=== PATIENT | female | born 1950 | race Caucasian/White ===

== ENCOUNTER 2021-08-13 02:54 | Outpatient (CLI) | payer MEDICARE, SELFPAY ==
[2021-08-13 13:11] LABS: Source Nasal/Nares
[2021-08-13 18:14] LABS: COVID-19 PCR Negative (Negative)
== END 2021-08-13 02:55 | disposition home or self-care (01) ==
PROVIDERS: Visit Provider Podiatrist
DX: Z20.822 Contact with and (suspected) exposure to COVID-19 (principal); Z01.818 Encounter for other preprocedural examination
CPT/HCPCS: 87635

== ENCOUNTER 2021-08-15 06:17 | Day surgery (SDC) | payer MEDICARE, SELFPAY ==
--- NOTE | 2021-08-15 06:13 | W.ANESPRE ---
General Info Date of Service Date Performed: 08/15/21 Height: 5 ft 6 in Weight: 69 kg Body Mass Index (BMI): 24.5 Surgical Procedure: Operation Date: 08/15/21 07:40 Proposed Procedures Side Surgeon p Bunionectomy DE LEON Right Donell Leonard DPM s Arthroplasty SECOND TOE RT FOOT Right Donell Leonard DPM Meds Allergies and Home Medications Allergies Allergy/AdvReac Type Severity Reaction Status Date / Time No Known Allergies Allergy Unverified 08/12/21 10:56 Home Medication Medication Instructions Recorded Unknown [No Known Home Meds] 08/12/21 Current Visit Medications: Current Medications Generic Name Dose Route Start Last Admin Trade Name Freq PRN Reason Stop Dose Admin Sodium Chloride 500 mls @ 0 mls/hr 08/15/21 06:00 Saline 500ml Bag IV PRN PRN As Directed Cefazolin Sodium/Dextrose 1 gm in 50 mls @ 100 mls/hr 08/15/21 06:00 Ancef Duplex IVPB 08/15/21 16:00 PREOP LIANNE Ringer's Solution 1,000 mls @ 80 mls/hr 08/15/21 06:00 IV 09/13/21 23:59 [facility]ION [facility] IV Miscellaneous Supplies 1 each 08/15/21 06:00 Iv Access IV DIRECTED LIANNE IV Miscellaneous Supplies 1 each 08/15/21 06:00 Iv Access IV 09/13/21 23:59 DIRECTED LIANNE Povidone Iodine 0 ml 08/15/21 06:00 Povidone-Iodine Soln. 118 Ml Btl TP 08/15/21 16:00 DIRECTED LIANNE Sodium Chloride 0 ml 08/15/21 06:00 Normal Saline Flush 10 Ml Syr IVP PRN PRN Sodium Chloride 0 ml 08/15/21 06:00 Normal Saline Flush 10 Ml Syr IV 09/13/21 23:59 PRN PRN Sodium Chloride 0 ml 08/15/21 06:00 Normal Saline 10 Ml Vial IJ 09/13/21 23:59 DIRECTED PRN Sterile Water 0 ml 08/15/21 06:00 Water,Injection,Sterile 10 Ml Vial IJ 09/13/21 23:59 DIRECTED PRN PFSH Medical History Medical History Pilonidal cyst Surgical History Surgical History Hx of appendectomy Hx of arthroscopy of right knee Hx of colonoscopy Hx of tonsillectomy Tobacco Smoking/Tobacco Use Status: Never Alcohol Alcohol Intake: current Alcohol intake frequency: a few times a month Substance Use Substance use type: does not use Vital Signs and Lab Results Vital Signs Most Recent Vital Signs in EMR: Temp Pulse Resp BP Pulse Ox 35.9 C L 63 16 129/77 98 08/15/21 06:20 08/15/21 06:20 08/15/21 06:20 08/15/21 06:20 08/15/21 06:20 Lab Results Blood Type / Crossmatch: No Data to Display Complete Blood Count: No Data to Display Complete Metabolic Panel: No Data to Display Liver Function Panel: No Data to Display Coagulation Panel: No Data to Display Cardiac Panel: No Data to Display Arterial Blood Gas: No Data to Display Venous Blood Gas: No Data to Display Pancreas Panel: No Data to Display Thyroid Panel: No Data to Display Infectious Disease: Coronavirus (COVID-19)(PCR) Negative (Negative) 08/13/21 08:56 08/13/21 Coronavirus 2019 Source Nasal/Nares 08/13/21 08:56 08/13/21 Blood Cultures: No Data to Display Toxicology Panel: No Data to Display Anesthesia Assessment and Plan Anesthesia History Personal History: No History of Anesthesia Complications Family History: No Family History of Anesthesia Complications Exercise Tolerance Exercise Tolerance: Metabolic Equivalents>4 Cardiac & Pulmonary Exam Cardiac Exam: Normal S1/S2 Heart Sounds Pulmonary Exam: Clear Bilateral Breath Sounds Airway Exam Known Difficult Airway: No Mallampati Class: 2 Mouth Opening: Narrow (< 3cm) Thyromental Distance: Greater than 3 cm Neck Range of Motion: Full ROM Neck Circumference: Normal Teeth Condition: Normal Dentition ASA Classification ASA Score: ASA 2 Emergency Case?: No NPO Status NPO Status: NPO Clears >2 hours, Solids >8 hours Anesthesia Plan Resuscitation Status: Full Code Anesthesia Technique: General Anesthesia Airway Planned: Natural Airway Monitors Used: Standard Monitors Preoperative Comments:: 70 yo female for bunionectomy right foot. Denies any major medical history. no previous anesthesia record. Plan for prop, no airway.
[2021-08-15 06:20] VITALS: BP 129/77; PULSE 63; RESP 16; TEMP 35.9; O2SAT 98
[2021-08-15] MEDS: Lactated Ringers 1,000 ML 80 ML IV (06:49)
--- NOTE | 2021-08-15 07:04 | HPE_ITS ---
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 Pain is experienced with shoe gear interfering with daily activities and ambulation. Nonoperative treatments have failed to provide significant relief of symptoms. [facility] Medical History Pilonidal cyst Surgical History Hx of appendectomy Hx of arthroscopy of right knee Hx of colonoscopy Hx of tonsillectomy Social History Smoking/Tobacco Use Status: Never Smoking risk assessment performed?: Yes Alcohol Intake: current Alcohol Intake frequency: a few times a month Substance use type: does not use Do you feel safe at home: Yes Do you feel safe in your relationship?: Yes Meds Allergies and Home Medications Allergies Allergy/AdvReac Type Severity Reaction Status Date / Time No Known Allergies Allergy Unverified 08/12/21 10:56 Home Medications Medication Instructions Recorded Confirmed Type Unknown [No Known Home Meds] 08/12/21 08/12/21 History Exam Narrative Exam Narrative: 70-year-old female in no acute distress for surgical correction of a symptomatic right hallux rigidus deformity and second digit hammertoe. Head is normocephalic Eyes PERRLA Hearing is adequate Uvula is midline airway looks assessable Heart had regular rate and rhythm I detected no gallops rubs or murmurs Lung garnica were clear Abdomen was soft bowel sounds appreciated Peripheral pulses minimally palpable at the ankles minus 2 out of 4, capillary fill is under 3 seconds without edema. Skin grossly intact no suspicious moles or lesions Muscle groups are 5 out of 5 bilaterally Skeletal exam is remarkable for end-stage degenerative arthrosis of the first MPJ of the right foot. Periarticular exostoses are noted periarticular tenderness on direct palpation. Crepitance is noted. Semirigid right second hammertoe deformity is appreciated with tenderness noted over the PIPJ. Neurologically grossly intact Impressions: End-stage degenerative arthrosis first MPJ right foot, hammertoe second digit Plan: Sima is being brought to the OR for her surgical correction of the above-mentioned painful deformities. She understands risk and complications of surgery pertaining to pain, scarring, infection, shortening of the great toe, floating of the great toe, similar changes to the second toe, the potential for revisional procedures were discussed. No promises were made to final outcome of surgery. Informed consents been obtained. Results Last Vital Signs Temp 35.9 C L 08/15/21 06:20 Pulse 63 08/15/21 06:20 Resp 16 08/15/21 06:20 BP 129/77 08/15/21 06:20 Pulse Ox 98 08/15/21 06:20
[2021-08-15 07:05] VITALS: BMI 24.5
[2021-08-15] MEDS: ceFAZolin 1 GM/50 ML BAG IVPB (07:37)
[2021-08-15] MEDS: Bupivacaine 0.5% Pres-Free 30 ML VIAL (07:54)
[2021-08-15] MEDS: Lidocaine 1% Multi-Dose 50 ML VIAL (07:54)
[2021-08-15] MEDS: Dexamethasone 4 MG/ML VIAL (08:52)
[2021-08-15 09:10] VITALS: BP 108/65; PULSE 61; RESP 16; TEMP 36.2; O2SAT 95
--- NOTE | 2021-08-15 09:10 | W.PM.DSUDISC ---
Discharge Plan Disposition Patient Disposition: HOME Condition: Good Discharge Details Reason For Visit: Surgical correction hallux rigidus and hammertoe Attending Provider: Donell Leonard Primary Care Provider: Nenita Booker Home Meds and New Rx's Prescriptions: New ibuprofen 600 mg tablet 600 mg PO Q6H PRN (Reason: pain and inflammation) Qty: 60 RF: 0 oxycodone-acetaminophen 5-325 mg tablet 1 tab PO Q6H PRNQty: 9 RF: 0 Discharge Instructions Activity:: Elevate Remove Dressings/Wound Care:: Do Not Remove Shower/Bathe:: Cover Diet:: Normal Diet Discharge Orders Discharge Orders: Discharge Order (Routine); Ordered 08/15/21 Ordered By: Donell Leonard DS: Diagnosis Discharge Diagnosis (1) Hallux rigidus of right foot: Status: Acute (2) Hammertoe of right foot: Status: Acute
--- NOTE | 2021-08-15 09:17 | ROE_ITS ---
Date of service: 08/15/21 Time of Service: 09:17 Operative Note Operative Note DATE OF PROCEDURE: 08/15/21 PRE-OP DIAGNOSIS: hallux rigidus, hammertoe 2nd, right foot POST-OP DIAGNOSIS: same PROCEDURE: [place] bunionectomy, arthroplasy 2nd tooe, right foot SURGEON: Donell Leonard Refer to Anesthesia Record ESTIMATED BLOOD LOSS: 1 PATHOLOGY: none sent TOURNIQUET TIME: 63 COMPLICATIONS: None Patient was transported to: same day Patient's condition: stable Implants: 0.062 K-wire x 2 Indications: 70-year-old female with progressive pain associated with end-stage degenerative arthritis first MPJ right foot and hammertoe of the second digit. These deformities interfering with comfortable shoe gear usage and ambulation. Nonoperative treatments have failed to provide sufficient relief of some. She understands risk and complications of surgery pertaining to pain, scarring, infection, shortening of the great toe and second digit, floating of the toes, chronic edema, recurrence potentially necessitating revisional procedures. Informed consents been obtained no promises made to final outcome of surgery. Findings: First MPJ had complete destruction of the articular cartilage on both sides of the joint with large periarticular exostosis formations. Procedure Description: Sima was brought to the operative suite placed in the supine position with the right foot prepped and draped in the usual sterile podiatric fashion. Anesthesia being achieved the right foot was exsanguinated and a well-padded ankle tourniquet inflated to 250 mmHg. Prior to this we did perform timeout for safe surgery. Attention was directed to the dorsal aspect of the right first MPJ where a 5 cm incision was made medial and parallel to the EHL tendon. Dissection was carried down in controlled depth fashion hemostasis acquired with electrocautery. A midline longitudinal incision was then made over the joint and the joint capsule opened medially and laterally. Multiple large dorsal exostosis formations were readily evident. Inspection of the joint revealed end-stage degenerative changes with near complete loss of all articular cartilage. With power instrumentation approximately 1 cm the base of the proximal phalanx was removed. The first metatarsal head was then remodeled and good correction of deformity was noted with good range of motion of the great toe observe. The hallux was then stabilized with a 0.062 K wire in retrograde fashion. Copious irrigation was performed. The joint capsule was subsequently repaired with simple interrupted suture 3-0 Vicryl the subcutaneous layer was then repaired with several 3-0 Vicryl and 4-0 Vicryl. Subcuticular layer was then repaired with continuous running suture of 4-0 Monocryl attention was directed to the second toe where a midline dorsal incision was made ap proximately 2 cm in length over the PIPJ. Incision was deepened in controlled depth fashion hemostasis used for electrocautery as needed transverse tenotomy capsulotomy was then performed at the PIPJ level with a #15 scalpel. The medial lateral collaterals were released and the head of the proximal phalanx delivered into the wound moderate degenerative arthrosis was appreciated the head was then resected with power instrumentation at its surgical neck all rough and bony edges were then rasped smooth the digit was noted to relax and was in a rectus position. All rough and bony edges were rasped smooth. Copious irrigation was performed. The digit was stabilized in retrograde fashion with a 0.062 K wire. Good correction was noted. The extensor tendon and joint capsule were repaired with simple interrupted suture 3-0 Vicryl the skin was coapted with simple interrupted suture of 4-0 nylon 4 mg of dexamethasone phosphate was infused deeply around the first MPJ Mastisol applied to the first metatarsal incision and quarter inch Steri-Strip applied Xeroform gauze fluff compression dressings were applied tourniquet was released at 63 minutes with vascularity returning immediately to all toes sharp and sponge counts were correct she'll be followed by myself in the office next week.
--- NOTE | 2021-08-15 10:10 | W.ANESPOSTOP ---
Postoperative Evaluation Date, Time and Location Date Performed: 08/15/21 Time Performed: 10:10 Patient Location: PACU Vital Signs Most Recent Imported Vital Signs: Most Recent Vital Signs Temp Pulse Resp BP Pulse Ox 36.2 C L 61 16 108/65 95 08/15/21 09:10 08/15/21 09:10 08/15/21 09:10 08/15/21 09:10 08/15/21 09:10 Pain Score Most Recent Pain Score: Most Recent Pain Score Pain Level 0 08/15/21 09:10 Assessment Mental Status: Awake (Alert & Oriented to Patient Baseline) Airway and Respiratory Function: Patent airway with normal (patient baseline) respiratory exam Cardiovascular Function: Hemodynamically Stable Hydration Status: Adequately Hydrated Nausea & Vomiting: No Nausea or Vomiting Pain: Pt. Denies Any Pain Peripheral Nerve Block: Patient did not receive a nerve block
--- NOTE | 2021-08-15 11:05 | W.ANESPOSTOP ---
Postoperative Evaluation Date, Time and Location Date Performed: 08/15/21 Time Performed: 11:06 Patient Location: PACU Vital Signs Most Recent Imported Vital Signs: Most Recent Vital Signs Temp Pulse Resp BP Pulse Ox 36.2 C L 61 16 108/65 95 08/15/21 09:10 08/15/21 09:10 08/15/21 09:10 08/15/21 09:10 08/15/21 09:10 Most Recent Vital Signs Temp Pulse Resp BP Pulse Ox 36.2 C L 61 16 108/65 95 08/15/21 09:10 08/15/21 09:10 08/15/21 09:10 08/15/21 09:10 08/15/21 09:10 Pain Score Most Recent Pain Score: Most Recent Pain Score Pain Level 0 08/15/21 09:10 Assessment Mental Status: Awake (Alert & Oriented to Patient Baseline) Airway and Respiratory Function: Patent airway with normal (patient baseline) respiratory exam Cardiovascular Function: Hemodynamically Stable Hydration Status: Adequately Hydrated Nausea & Vomiting: No Nausea or Vomiting Pain: Pt. Denies Any Pain Peripheral Nerve Block: Patient did not receive a nerve block
== END 2021-08-15 10:30 | disposition home or self-care (01) ==
PROVIDERS: PCP Physician Assistant; Visit Provider Podiatrist
PROC: (CPT 28292; principal; 2021-08-15 07:30)
PROC: (CPT 28292; 2021-08-15 07:30)
DX: M20.21 Hallux rigidus, right foot (principal); M20.41 Other hammer toe(s) (acquired), right foot
CPT/HCPCS: 28292; 28285; J0690; J1100; J1885; J2001; J2704